=== PATIENT | female | born 1980 | race Asian ===

== ENCOUNTER 2016-11-12 11:01 | Observation (INO) | payer OTHER ==
[2016-11-12] VITALS (15 sets, daily range): BP systolic 82–104; BP diastolic 40–58; PULSE 66–84; RESP 17–18; Ht 162.6 cm; Wt 54.6 kg
[~2016-11-12] VITALS: Ht 162.6 cm; Wt 54.6 kg
[2016-11-12] MEDS ORDERED: [UNRECOGNIZED DRUG - CODE] PO (11:59)
[2016-11-12] MEDS ORDERED: LACTATED RINGER'S 1,000 ML IV SCH (12:00)
[2016-11-12 12:03] LABS: ADD SCAN DIFF NO
[2016-11-12 12:08] LABS: BASOPHILS % 0.3 % (0.0-2.0); EOSINOPHILS # 0.1 10^3/ul (0.0-0.5); EOSINOPHILS % 1.7 % (0.0-7.0); HEMATOCRIT 31.9 % (37.0-47.0); LYMPHOCYTES # 1.7 10^3/ul (0.8-2.9); LYMPHOCYTES % 25.6 % (15.0-51.0); MEAN CORPUSCULAR HEMOGLOBIN 31.3 pg (29.0-33.0); MEAN CORPUSCULAR HGB CONC 34.5 g/dl (32.0-37.0); MEAN CORPUSCULAR VOLUME 90.6 fl (82.0-101.0); MEAN PLATELET VOLUME 10.4 fl (7.4-10.4); MONOCYTE # 0.5 10^3/ul (0.3-0.9); MONOCYTES % 7.2 % (0.0-11.0); NEUTROPHIL # 4.2 10^3/ul (1.6-7.5); NEUTROPHILS % 64.4 % (39.0-77.0); PLATELET COUNT 206 10^3/UL (140-415); RED BLOOD COUNT 3.52 10^6/ul (4.20-5.40); RED CELL DISTRIBUTION WIDTH 12.1 % (11.5-14.5); WHITE BLOOD COUNT 6.6 10^3/ul (4.8-10.8)
[2016-11-12 12:25] LABS: INR 0.91; PROTIME 12.2 Sec (12.2-14.2)
[2016-11-12 12:26] LABS: PARTIAL THROMBOPLASTIN TIME 27.5 Sec (25.0-35.0)
--- NOTE | 2016-11-12 12:46 | PREOPHP ---
DATE OF ADMISSION: 11/12/2016 CHIEF COMPLAINT: Intrauterine at 18 weeks 2 days and left 8 cm ovarian dermoid tumor. HISTORY OF PRESENT ILLNESS: Patient is a 35-year-old 1 with last menstrual period 07/07/2016. Estimated confinement 04/13/2017 with an intrauterine at 18 weeks 2 days. At her first visit at 9 weeks , she had a very large palpable left adnexal mass which through evaluation including an MRI, it was revealed to be a dermoid tumor. Standard is to wait until sometime between 14 and 20 weeks to proceed to surgery to get her past the time of more common miscarriages. After much discussion in with Jesús Torre MD the CURRICULUM DIRECTOR oncologist as well as the patient's perinatologist, Dr. Gabriel Hallman decided to proceed to removing it now as Dr. Hallman is particularly worried about as the uterus grows having the ovary get tugged on and having it become a torsion or rupturing and causing way more problems than removing the tumor under controlled conditions at this point in time. I have asked Dr. Jesús Torre to assist as this is surgery in the upper abdomen by laparoscopy, in order to proceed with the most caution. PAST MEDICAL HISTORY: Otherwise, past medical history is negative. PAST SURGICAL HISTORY: Only her wisdom teeth previously and she had used local anesthesia only. ALLERGIES: NO KNOWN DRUG ALLERGIES. FAMILY HISTORY: Noncontributory. MEDICATIONS: Takes vitamins only. PHYSICAL EXAMINATION: VITAL SIGNS: She is 5 feet 4 inches, 120 pounds. HEART: Regular rate and rhythm. LUNGS: Clear to auscultation. ABDOMEN: Soft, nontender, gravid. I am unable to palpate the mass now as the uterus has grown. PELVIC: Deferred. EXTREMITIES: Nontender, no edema. LABORATORY WORK: Blood type A positive, antibody screen negative, serology nonreactive, rubella immune, hepatitis B surface antigen negative, hepatitis C antibody negative, HIV negative. Pap was negative. Gonorrhea was negative. The patient had chlamydia which was treated and she had a test of care which was negative. First and second trimester screens were negative. TSH normal. Platelets were normal. One hour post-Glucola was normal. Hemoglobin 12.1 initially.Tumor markers were within normal range. ASSESSMENT: Intrauterine at 18 weeks 2 days, left 8 cm ovarian dermoid tumor. PLAN: Laparoscopic left ovarian cystectomy, possible laparotomy, possible oophorectomy. Dictated By: ENEIDA RUSSELL/ALYCE Conf#: [id number] DID#: [id number] MTDD
[2016-11-12] MEDS ORDERED: morphine SULFATE/PF (10 MG/10 ML) INJ ONE (13:30)
[2016-11-12] MEDS ORDERED: PROPOFOL 20 ML ONE (13:30)
[2016-11-12] MEDS ORDERED: METOCLOPRAMIDE 10 MG INJ ONE (13:31)
[2016-11-12] MEDS ORDERED: FENTAnyl 50 MCG/ML VIAL ONE (13:52)
[2016-11-12] MEDS ORDERED: EPHEDrine SULFATE 50 MG/5 ML SYG ONE (14:02)
[2016-11-12] MEDS ORDERED: ROCURONIUM 50 MG INJ ONE (14:17)
[2016-11-12] MEDS ORDERED: METOCLOPRAMIDE 10 MG INJ IV PRN (15:00)
[2016-11-12] MEDS ORDERED: HYDROmorphONE (0.2 MG/ML) 10ML SYG IV PRN ×3 (15:00)
[2016-11-12] MEDS ORDERED: MEPERIDINE 25 MG INJ IV PRN (15:00)
[2016-11-12] MEDS ORDERED: HYDROmorphONE 1 MG/ML SYG IV PRN ×3 (15:00)
[2016-11-12] MEDS ORDERED: NALOXONE (0.4 MG/ML) INJ IV PRN (15:00)
[2016-11-12] MEDS ORDERED: DIPHENHYDRAMINE 50 MG INJ IV PRN ×2 (15:00)
[2016-11-12] MEDS ORDERED: GLYCOPYRROLATE 0.4 MG INJ ONE (16:03)
[2016-11-12] MEDS ORDERED: NEOSTIGMINE 3 MG/3 ML SYRINGE ONE (16:03)
[2016-11-12] MEDS: DEXTROSE 5%-LR 1,000 ML IV SCH (20:35)
--- NOTE | 2016-11-12 22:05 | OPR ---
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 Lasha Jeffries) 3- Minilaparotomy (dictated as a separate procedure by Dr. Lasha Jeffries ) Surgeon: Dr. Morales Human Resources Office Manager: Dr. Lasha Jeffries Anesthesia: General Indications for Surgery The patient is a 36- year old patient with an 18- week IUP, some discomfort and normal tumor markers excluding germ cell and epithelial malignancy. Hence the procedure was addressed to avoid a possible torsion and premature labor with a laparoscopy with all options considered and Dr. Lasha Jeffries was the primary surgeon and I was the fitness sales consultant in the event that a ureteral dissection or other consultation or staging were needed. Name: Bella Moore Medical Findings and Summary After exploration it was noted that the patient had a uterus somewhat larger than anticipated with fibroids and the viable left adnexia was adherent to the left sidewall with distortion of the retroperitoneal anatomy by the enlarged uterus and mass with distorted IP-ligament. Because the adnexia was adherent to the sidewall IP- hypervascular, it was necessary to dissect and reposition the ureter. The adnexia was then removed without incident in a 15-millimeter sac without spillage through a small minilaparotomy Procedure: After being prepped and draped in the usual manner a 5 millimeter trocar was placed significantly cephlad to the umbilicus due to the size of the uterus and adnexal mass without incident. Subsequently, the abdomen was insufflated to 15 mm Hg and the patient had placement of two 5 millimeter trocars laterally and cephlad to the umbilical level, and a 12 millimeter trocar 3 finger breadths suprapubically. At this time, the pelvis/abdomen were thoroughly inspected and we observed an enlarged uterus consistent with the with fibroids further enlarging the uterus and a left adnexal mass adherent to the sidewall with the IP-ligament hypervascular and distortion of the retroperitoneal anatomy due to uterine enlargement and the adnexal mass adherent to the sidewall, with distortion of the ureteral anatomy. It was requested by Dr. Lasha Jeffries that I perform a ureteral dissection with repositioning, as a separate procedure, so that the needed procedure (laparoscopic LSO) could be completed without complication. Hence the ureteral dissection with repositioning was undertaken. A protected fan retractor was placed through the 12-mm trocar to apply minimal medial retraction to the uterus and the peritoneum near the round ligament was opened with a Gyrus bipolar cutting forceps and Omni and the retroperitoneum opened parallel to the infundibulo- pelvic (IP) ligament with the same devise using Name: [facility] cautery and sharp dissection as well as the Omni. The IP-ligament was retracted medially with the IP-ligament and the ureter was identified, and noted to be adherent to the pelvic peritoneum near adjacent adnexia The ureter was dissected away from the peritoneum with adjacent adnexia and repositioned with great care using the endo-dissector and the Omni bluntly, permitting a space to be developed in the broad ligament. Additional enterolysis was accomplished with sharp dissection and the Omni and the sigmoid colon retracted The laparoscopic procedure as planned was then completed by Dr. Lasha Jeffries uneventfully. After irrigating and assuring hemostasis, the skin of the minilaparotomy was closed with a deep layer of interrupted 2-0 Vicryl suture and of all sites then closed with subcuticular 3-0 Monocryl suture. The EBL was approximately 50-75 cc and the patient tolerated the procedure well and left the OR in good condition. Jesús Morales M.D. JESÚS MORALES MD November 12, 2016 22:04
[2016-11-13] MEDS: DEXTROSE 5%-LR 1,000 ML IV SCH (02:56)
--- NOTE | 2016-11-13 10:16 | PD.PPDC ---
ENGINEERING AIDE Discharge Instruction Condition Patient Condition: Good Diet Diet: Resume Regular Diet Activity/Restrictions Activity: Bedrest May be up to bathroom May be up for meals May Shower Restrictions: No Exercising No Lifting No Driving Minimize Walking Minimize Stair-climbing No Sexual Activity Nothing in the Vagina No [place] No Tampons, douche Follow-up Follow-up with Physician: 2, Week/Weeks Return to clinic for ORTHOTICS ASSISTANT Instructions: Fever greater than 101 Chills Worsening abdominal pain Excessive Vaginal Bleeding Surgical Instructions: Incisional Drainage Incisional Redness ENEIDA MARTÍNEZ MD November 13, 2016 10:16
[2016-11-13] MEDS ORDERED: OXYCODONE/ACETAMINOPHEN (5/325) TAB PO PRN (10:30)
--- NOTE | 2016-11-13 12:10 | PN ---
Date/Time of Note Date/Time of Note DATE: 11/13/16 TIME: 12:07 Assessment/Plan VTE Prophylaxis VTE Prophylaxis Intervention: ambulation Lines/Catheters IV Catheter Type (from Nrsg): Peripheral IV Subjective 24 Hr Interval Summary Free Text/Dictation Anesthesia note: A 31 year old female 18 w s/p laparoscopic left salpingo-oopherectomy pod # 1 undr Ga and Spninal is doing well, no pain, n/v, itching, back pain. no irritation or inflamation at back. Exam/Review of Systems Vital Signs Vitals Vital Signs Date Time Temp Pulse Resp B/P Pulse Ox O2 Delivery O2 Flow Rate FiO2 11/12/16 20:08 97.5 66 18 83/42 100 Room Air 11/12/16 16:43 6.0 Intake and Output 11/12/16 11/12/16 11/13/16 14:59 22:59 06:59 Intake Total 2100 ml 1000 ml Output Total 430 ml Balance 1670 ml 1000 ml Results Result Diagram: 11/12/16 1155 ROSARIO DOBSON MD November 13, 2016 12:10
--- NOTE | 2016-11-13 20:34 | DS ---
Date/Time of Note Date/Time of Note DATE: 11/13/16 TIME: 20:28 Discharge Summary Admission/Discharge Info Admit Date/Time November 12, 2016 at 18:20 Discharge Date/Time November 13, 2016 at 11:32 Final Diagnosis IUP at 18 weeks, 10cm left ovarian dermoid tumor. Patient Condition: Good Procedures Laparoscopic left salpingoophorectomy. Hospital Course Pt rested comfortably overnight with Duramorph and additional pain meds as needed. hearts have been within normal range and pt does not report any pressure or bleeding. Home Meds Reported Medications Prenatl Vit6/Iron/FA/B12/Ca/D3 (Mteryti Folic 5 Combo Pack) 1 Each Tablet.seq, 1 EACH PO, TAB 11/12/16 Follow-up Plan Pt to return to the office in 2 weeks for follow-up and was given labor precautions. ENEIDA MARTÍNEZ MD November 13, 2016 20:34
--- NOTE | 2016-11-15 05:08 | OPR ---
DATE OF OPERATION: 11/12/2016 PREOPERATIVE DIAGNOSES: 1. Left adnexal mass with intermittent discomfort. 2. An 18 week intrauterine . POSTOPERATIVE DIAGNOSES: 1. Left adnexal mass, probably a benign teratoma, pathology pending. 2. Pelvic adhesions and fibroids. 3. An 18 weeks . OPERATION PERFORMED: Laparoscopic left salpingo-oophorectomy, minilaparotomies , and left ureterolysis with repositioning. SURGEON: Lasha Jeffries MD HAND CANDY DIPPER: Jesús Torre MD ANESTHESIA: General with a spinal block as well. PROCEDURE TECHNIQUE: The patient is a 36-year-old primigravida with an 18-week , some discomfort, normal tumor markers, and proceeding with removal of the ovary to avoid possible torsion and possible rupture of the mass as the uterus continued to grow after consultation with perinatology and the patient. The initial portion of the surgery is dictated previously by Dr. Torre. Upon entering the abdomen I asked him to proceed with a ureteral dissection with repositioning due to the uterus being a little larger than expected and some adhesions between the mass and sidewall and the bowel and sidewall. Once the ureteral dissection had occurred, anatomy was well defined. The Thunderbeat was used to capture the tube at the base where it enters the uterus. This was cauterized and cut down capturing the tube and then at the pedicle to the ovary. This was easily accomplished with excellent hemostasis at all times. When the tube and ovary were free, at the mini laparotomy site, a large bag was placed carefully having to feed it at an extreme angle, tracking above the uterus without touching it, and placed into the left adnexa and the ovary was teased into the bag. As the mass was rather large,it needed decompression but wanted to proceed with caution and not spill any fluid. Incised the mass with suction and evacuated the liquid contents which were consistent with fat. When the ovary got down to about one-third of its former size, the needle was removed. The sac was closed and brought up over the uterus to the minilaparotomy site. The bag was brought out of the site up to the level of the mass, then reached into the sac and pulled the mass out in parts, effectively removing it all. It did appear most consistent with a dermoid tumor. To get the mass out in the sac, the minilaparotomy site had to be stretched some, so I had to close this area in order to proceed with the rest of the surgery. I used 0 Vicryl suture in a running stitch to close the fascia with excellent tissue approximation and hemostasis, and the subcutaneous area was irrigated, cautery applied where needed for hemostasis, and 2-0 chromic was placed to bring the subcutaneous layer together. Then the skin was closed with 3-0 Monocryl in subcutaneous fashion. I proceeded to irrigate the abdomen gently. No instruments inside, no laps inside. Gently irrigated. All surgical sites were very dry. Then I released the air and removed the instruments. Proceeded to close the remaining incision sites all with 3-0 Monocryl as they were all for 5 mm trocars. Surgical glue was placed over all of the incisions at the end. When completed, the patient's legs were brought together and then down into the full supine position, and she was awakened from general anesthesia having tolerated the procedure well and left the OR in good condition. Dictated By: LASHA RUSSELL/ALYCE Conf#: [id number] DID#: [id number] MTDSosa
== END 2016-11-13 11:32 | disposition home or self-care (01) ==
LOC: SDS 11:01 → EDSTATUS 13:30 → INTOOBSV 18:20 → OBG 18:20 → SDS 18:20
PROVIDERS: ADMIT Obstetrics & Gynecology; ATTEND Obstetrics & Gynecology
DX: O34.12 Maternal care for benign tumor of corpus uteri, second trimester (principal); D27.1 Benign neoplasm of left ovary; N73.6 Female pelvic peritoneal adhesions (postinfective); Z3A.18 18 weeks gestation of pregnancy
CPT/HCPCS: 50715; 58661; 85025; 85610; 85730; G0378; J2274; J2765; J3010; J7121; J2710; J7120

== ENCOUNTER 2017-02-15 13:26 | Inpatient (IN) | payer OTHER ==
[~2017-02-15] VITALS: Ht 162.6 cm; Wt 60.3 kg
[~2017-02-15 13:26] MED LIST: [UNRECOGNIZED DRUG - CODE] PO
[2017-02-15 13:45] VITALS: BP 124/54; RESP 16; Ht 162.6 cm; Wt 60.3 kg
[2017-02-15] MEDS ORDERED: LACTATED RINGER'S 1,000 ML IV PRN (14:30)
[2017-02-15] MEDS ORDERED: TERBUTALINE 1 MG/ML INJ SC ONE (14:30)
[2017-02-15 15:01] LABS: ADD UMIC YES; UR ASCORBIC ACID 40 mg/dL (NEGATIVE); UR BACTERIA FEW /HPF (NONE SEEN); UR BILIRUBIN (Dip) NEGATIVE (NEGATIVE); UR BLOOD (Dip) NEGATIVE (NEGATIVE); UR CLARITY SLIGHTLY CLOUDY (CLEAR); UR COLOR YELLOW (YELLOW); UR GLUCOSE (Dip) 1+ mg/dL (NEGATIVE); UR KETONES (Dip) 1+ mg/dL (NEGATIVE); UR LEUKOCYTE ESTERASE (Dip) 1+ Leu/ul (NEGATIVE); UR MUCUS FEW /HPF (NONE SEEN); UR NITRITE (Dip) NEGATIVE (NEGATIVE); UR RBC 3 /HPF (0-5); UR SPECIFIC GRAVITY (Dip) 1.023 (1.003-1.030); UR SQUAMOUS EPITHELIAL CELL FEW /HPF (FEW); UR TOTAL PROTEIN (Dip) 2+ mg/dl (NEGATIVE); UR UROBILINOGEN (Dip) NEGATIVE (NEGATIVE)
[2017-02-15] MEDS ORDERED: MAGNESIUM SULFATE 4 GM/100 ML 100 ML IV ONE (17:00)
[2017-02-15] MEDS: BETAMET NA PHOS/AC(6 MG/ML) 5ML INJ IM SCH (17:28)
[2017-02-15] MEDS: LACTATED RINGER'S 1,000 ML IV SCH (17:28)
[2017-02-15] MEDS: MAGNESIUM SULFATE 20 GM/500 ML 500 ML IV SCH (17:55)
[2017-02-15] MEDS ORDERED: ONDANSETRON 4 MG INJ IV PRN (19:30)
--- NOTE | 2017-02-15 21:14 | HP ---
Date/Time of Note Date/Time of Note DATE: 02/15/17 TIME: 21:06 OB - History Hx of Present Free Text/Dictation 36 y.o. G1 with an IUP at 31 weeks 6 days came in c/o with pressure under the diaphragm and nausea and was found to be [place] every few minutes.No leaking and no bleeding. Last Menstrual Period: Jul 07, 2016 Estimated Due Date: Apr 13, 2017 : 1 Para: 0 Care: Good Care Ultrasounds: Normal mid trimester US Obstetrical Complications: None Medical Complications: None Other Concerns: Pt with recent dx of PUPPS. Pt had a very large dermoid cyst that was removed by BSO at 18 weeks of . Pt had chlamydia that was treated in early . PMHx: none. PSHx: wisdom teeth. LSC left salpingoophorectomy for a dermoid cyst. NKDA. Past Family/Social History * Past Medical, Surgical, Family and Obstetric Histories reviewed from chart. Blood Type: A+ Rubella: immune RPR/VDRL: Negative GBS Status: Unknown HBsAG: Negative OB Admission Exam Vital Signs Vital Signs Vital Signs Date Time Temp Pulse Resp B/P Pulse Ox O2 Delivery O2 Flow Rate FiO2 02/15/17 13:45 97.8 16 124/54 Room Air Physical Exam HEENT: WNL Heart: Rhythm Normal Lungs: Clear Abdomen: WNL Extremities: Normal Reflexes: Normal Cervical Dilatation: Fingertip Effacement: 50% Station: -2 Membranes: Intact Heart Rate: 140's Accelerations: Accelerations Present Decelerations: No Decelerations Varibility: Moderate Contractions on Admission: < 5 Minutes Apart Intensity: Mild OB Assessment/Plan Reason for admission: labor Other Assessment: IUP at 31 weeks 6 days. Plan: Other (Tocolysis.) Other plan: Steroid administration. Pt failed hydration and 2 doses of terbutaline with no slowing of the contractions so was admitted and started on magnesium sulfate for tocolysis. Ancef 2 grams q 8 hours while awaiting the urine cx. ENEIDA MARTÍNEZ MD Feb 15, 2017 21:14
[2017-02-15] MEDS: CEFAZOLIN 2 GM/50 ML (PMX) 50 ML IVPB SCH (22:27)
[2017-02-16] MEDS ORDERED: NIFEdipine 10 MG CAP PO ONE (00:30)
[2017-02-16] MEDS ORDERED: MAGNESIUM SULFATE 4 GM/100 ML 100 ML IV ONE (00:30)
[2017-02-16] MEDS: LACTATED RINGER'S 1,000 ML IV SCH ×3 (02:46→16:50)
[2017-02-16] MEDS: MAGNESIUM SULFATE 20 GM/500 ML 500 ML IV SCH ×3 (04:15→22:53)
[2017-02-16] MEDS: CEFAZOLIN 2 GM/50 ML (PMX) 50 ML IVPB SCH ×3 (06:15→21:59)
[2017-02-16] MEDS: BETAMET NA PHOS/AC(6 MG/ML) 5ML INJ IM SCH (17:01)
[2017-02-17] MEDS: LACTATED RINGER'S 1,000 ML IV SCH ×3 (03:12→16:50)
[2017-02-17] MEDS: CEFAZOLIN 2 GM/50 ML (PMX) 50 ML IVPB SCH ×3 (06:04→22:06)
[2017-02-17] MEDS: MAGNESIUM SULFATE 20 GM/500 ML 500 ML IV SCH ×3 (08:58→18:46)
--- NOTE | 2017-02-17 20:32 | QN ---
Documentation Comment HD #3 Pt is feeling much better. Is only having about 1 contraction/hour and isn't feeling them. The Magnesium was turned down earlier today and the pt has remained steady. S/P 2 doses of steroids. Afebrile. VSS NST: rare UC's Tracing is reactive with good accelerations and no decels. A: IUP at 32+ weeks. PTL. P: D/C magnesium and change pt over to Procardia 20mg q 6. If pt holds steady she may be able to be d/c'ed home tomorrow to bedrest. ENEIDA MARTÍNEZ MD Feb 17, 2017 20:32
--- NOTE | 2017-02-17 20:35 | QN ---
Documentation Comment Late entry for 02/16/17 HD#2. Came to see pt and she is in good spirits. Contractions had been 5-6/hour earlier in the day but are now 1-2/hour. No bleeding. NST: reactive with good accels and no decels. A: IUP at 32 weeks. PTL. P: will decrease the magnesium in the morning and switch pt over to Procardia as a prelude to going home. ENEIDA MARTÍNEZ MD Feb 17, 2017 20:35
[2017-02-17] MEDS: NIFEdipine 10 MG CAP PO SCH (21:16)
[2017-02-18] MEDS: NIFEdipine 10 MG CAP PO SCH ×2 (01:14→05:57)
[2017-02-18] MEDS: LACTATED RINGER'S 1,000 ML IV SCH ×3 (01:16→23:22)
[2017-02-18] MEDS: CEFAZOLIN 2 GM/50 ML (PMX) 50 ML IVPB SCH ×3 (05:56→21:53)
[2017-02-18] MEDS ORDERED: MAGNESIUM SULFATE 4 GM/100 ML 100 ML ONE (08:41)
[2017-02-18] MEDS ORDERED: MAGNESIUM SULFATE 4 GM/100 ML 100 ML IVPB ONE (09:00)
[2017-02-18] MEDS: MAGNESIUM SULFATE 20 GM/500 ML 500 ML IV SCH ×2 (09:09→18:21)
[2017-02-18 11:47] LABS: BASOPHILS % 0.2 % (0.0-2.0); EOSINOPHILS # 0.1 10^3/ul (0.0-0.5); EOSINOPHILS % 0.6 % (0.0-7.0); HEMOGLOBIN 10.4 g/dl (12.0-16.0); LYMPHOCYTES # 1.1 10^3/ul (0.8-2.9); LYMPHOCYTES % 10.2 % (15.0-51.0); MEAN CORPUSCULAR HEMOGLOBIN 30.8 pg (29.0-33.0); MEAN CORPUSCULAR HGB CONC 33.5 g/dl (32.0-37.0); MEAN CORPUSCULAR VOLUME 91.7 fl (82.0-101.0); MEAN PLATELET VOLUME 11.2 fl (7.4-10.4); MONOCYTE # 0.8 10^3/ul (0.3-0.9); MONOCYTES % 7.6 % (0.0-11.0); NEUTROPHIL # 8.7 10^3/ul (1.6-7.5); PLATELET COUNT 194 10^3/UL (140-415); RED BLOOD COUNT 3.38 10^6/ul (4.20-5.40); RED CELL DISTRIBUTION WIDTH 13.1 % (11.5-14.5); WHITE BLOOD COUNT 10.7 10^3/ul (4.8-10.8)
[2017-02-18 12:05] LABS: POTASSIUM 3.2 mmol/L (3.5-5.1)
[2017-02-18 12:06] LABS: ALBUMIN 3.1 g/dl (3.3-4.9); ALBUMIN/GLOBULIN RATIO 0.96; BILIRUBIN,INDIRECT 0.4 mg/dl (0-1.1); BILIRUBIN,TOTAL 0.4 mg/dl (0.2-1.3); CALCIUM 7.8 mg/dl (8.4-10.2); CREATININE 0.63 mg/dl (0.44-1.00); TOTAL PROTEIN 6.3 g/dl (6.1-8.1)
[2017-02-18] MEDS ORDERED: POTASSIUM BICARBONATE 25 MEQ TAB PO ONE (18:00)
[2017-02-19] MEDS: MAGNESIUM SULFATE 20 GM/500 ML 500 ML IV SCH ×2 (04:28→18:43)
[2017-02-19] MEDS: CEFAZOLIN 2 GM/50 ML (PMX) 50 ML IVPB SCH ×3 (06:10→22:12)
[2017-02-19] MEDS: ACETAMINOPHEN 325 MG TAB PO PRN ×3 (08:52→22:13)
--- NOTE | 2017-02-19 08:53 | QN ---
Documentation Comment Late Entry Progress Note (was unable to access from home) HD #3 (for 02/18/17 Pt had been taken off magnesium and changed to Procardia and had been doing fine but started austin again q 4-5 minutes about 0600 so the magnesium was restarted and worked fairly quickly. VSS NST baseline 130-140 bpm with accels to 170 bpm. No decels. WBC 10.7 Hgb 10.4 K+ was 3.2 A: IUP at 32 weeks 2 days. PTL. P: Continue on the magnesium for now. Will decrease to 1.5 overnight and se if the pt tolerates. As pt is after 32 weeks Indocin is not a choice.When pt was admitted the terbutaline given did not make a difference at all. Will ask for a perinatology consult in the AM. Cervical length in the AM. KCL 25 p.o. x 1. ENEIDA MARTÍNEZ MD Feb 19, 2017 08:53
--- NOTE | 2017-02-19 13:48 | RADRPT ---
PROCEDURE: Limited OB ultrasound. CLINICAL INDICATION: labor. TECHNIQUE: Real time scans were obtained through the gravid uterus. Images were reviewed on [id number] PACS workstation. COMPARISON: None available. FINDINGS: There is a single living intrauterine gestation in cephalic position. There is a posterior placenta without evidence of previa or abruption. There is active cardiac motion at 154 beats per minute. Cervical length is 3.0 cm. IMPRESSION: 1. Single living intrauterine gestation in cephalic position with a cervical length of 3.0 cm. RPTAT: AACC Physician Amber Date Time Electronically viewed and signed by Physician Amber on 02/19/2017 13:47 /
[2017-02-19] MEDS: LACTATED RINGER'S 1,000 ML IV SCH (13:53)
--- NOTE | 2017-02-19 14:14 | PERINOTE ---
Date/Time of Note Date/Time of Note DATE: 02/19/17 TIME: 14:04 Assessment/Recommendations Other Assessments 32 week IUP contractions, recurring when magnesium was discontinued Normal cervical length Recommendations: Under these circumstances I would discontinue the magnesium and observe. If contractions occur (more than one every 10 minutes for two hours), would repeat the cervical length. If the cervical length is shortening, could consider repeat magnesium tocolysis, although I would not continue trials of tocolysis after 34 weeks GA. This consultation relies on history from the medical record and from discussion with Dr. Jeffries. OB Subjective Free Text/Dictaton Was asked by Dr. Jeffries to comment on this patient's management. Patient was admitted with contractions. These have responded well to magnesium sulfate, but recurred when the patient was changed to nifedipine and magnesium was restarted. Cervical length today was 3 cm (in the normal range, suggesting a lower risk for delivery). The cervical length images were reviewed by me, and appear to be valid. Patient is currently about 32 weeks GA. Current Medications Current Medications Lactated Ringer's 1,000 ml @ 75 mls/hr [id number] IV Last administered on 13:53; Admin Dose 75 MLS/HR; Start 02/15/17 at 16:50 Cefazolin Sodium/ Dextrose (Ancef 2 Gm/50 ml (Pmx)) 50 ml @ 100 mls/hr Q8 IVPB Last administered on 02/19/17 13:53; Admin Dose 100 MLS/HR; Start 02/15/17 at 22:00 Ondansetron HCl 4 mg 4 mg Q6H PRN IV NAUSEA AND/OR VOMITING Last administered on 02/16/17 15:15; Admin Dose 4 MG; Start 02/15/17 at 19:30 Magnesium Sulfate (Magnesium Sulfate 20 Gm/500 ml) 500 ml @ 25 mls/hr Q20H IV Last administered on 02/19/17 04:28; Admin Dose 50 MLS/HR; Start 02/18/17 at 09 :00 Acetaminophen (Tylenol Tab) 650 mg Q6H PRN PO PAIN AND OR ELEVATED TEMP Last administered on 02/19/17 08:52; Admin Dose 650 MG; Start 02/19/17 at 09:00 Copies To: CC: REICHENEIDA Trotter MD, MARIE H MD Feb 19, 2017 14:14
--- NOTE | 2017-02-19 15:01 | QN ---
Documentation Comment Progress Note HD #4 IUP at 32 weeks 3 days; PTL Pt has occasional UC's on current magnesium level of 1mg/hr. Pt feels better on the lower amount. Spoke to Dr Peñaloza today and she recommended weaning off the magnesium and the seeing if when she has cervical change if she starts to contract again. CX length today 3.06 cm. NST reactive with good accels. ENEIDA MARTÍNEZ MD Feb 19, 2017 15:01
[2017-02-20] MEDS: LACTATED RINGER'S 1,000 ML IV SCH ×2 (03:30→16:41)
[2017-02-20] MEDS: CEFAZOLIN 2 GM/50 ML (PMX) 50 ML IVPB SCH ×3 (06:12→21:34)
[2017-02-20] MEDS: ACETAMINOPHEN 325 MG TAB PO PRN ×2 (09:36→16:38)
[2017-02-20] MEDS: TERBUTALINE 2.5 MG TAB PO PRN (09:36)
--- NOTE | 2017-02-20 10:45 | QN ---
Documentation Comment Pregress Note. Pt is doing well off the magnesium. Started to have contractions q 10 minutes this AN but wasn't feeling them. Pt was given terbutaline 2.5 mg p.o. x 1 and they have spaced out. Will be off the magnesium 12 hours at 1100 which is when she started to contract last time. Will observe for today. Hopefully will have d/s tomorrow. ENEIDA MARTÍNEZ MD Feb 20, 2017 10:45
[2017-02-21] MEDS: TERBUTALINE 2.5 MG TAB PO PRN (02:57)
[2017-02-21] MEDS: CEFAZOLIN 2 GM/50 ML (PMX) 50 ML IVPB SCH (05:55)
[2017-02-21] MEDS: LACTATED RINGER'S 1,000 ML IV SCH (08:34)
--- NOTE | 2017-02-21 09:43 | PD.PPDC ---
LOGGING ENGINEER Discharge Instruction Condition Patient Condition: Good Diet Diet: Resume Regular Diet Activity/Restrictions Activity: Bedrest May be up to bathroom May be up for meals May Shower Restrictions: No Exercising No Lifting Minimize Walking No Sexual Activity Nothing in the Vagina No [place] No Tampons, douche Follow-up Follow-up with Physician: 1, Week/Weeks Return to clinic for DIRECTOR HOME Instructions: Worsening abdominal pain Excessive Vaginal Bleeding ENEIDA MARTÍNEZ MD Feb 21, 2017 09:43
[2017-02-21] MEDS ORDERED: TER25 PO (09:44)
--- NOTE | 2017-02-21 09:46 | DS ---
Date/Time of Note Date/Time of Note DATE: 02/21/17 TIME: 09:44 Obstetrical Discharge Record Final Diagnosis Final Diagnosis: not delivered Other Final Diagnosis labor. Complications Labor Augmentation: No Induction: No Tocolytics: Magnesium Sulfate, Terbutaline, Other (Procardia) Rupture of Membranes: No Condition on Discharge Physical Assessment Last Vitals: VSS, normotensive. Voiding: Yes Bowel Movement: Yes Breast: Soft, non-tender Fundus: Other (Gravid, soft.) Calf Tenderness: No Patient Condition: Good ENEIDA MARTÍNEZ MD Feb 21, 2017 09:46
[2017-02-21] MEDS ORDERED: DIPHTH/TET/ACEL PERTUSS (ADULT) 0.5 ML VIAL IM* ONE (10:00)
== END 2017-02-21 11:00 | disposition home or self-care (01) | DRG 778 ==
LOC: OBT 13:26 → L-D 13:40 → OBT 16:49 → OBG 16:49
PROVIDERS: ADMIT Obstetrics & Gynecology; ATTEND Obstetrics & Gynecology
PROC: 4A1HX4Z Monitoring of Products of Conception, Cardiac Electrical Activity, External Approach (ICD-10-PCS; principal; 2017-02-15)
PROC: 3E0337Z Introduction of Electrolytic and Water Balance Substance into Peripheral Vein, Percutaneous Approach (ICD-10-PCS; 2017-02-15)
PROC: 3E0234Z Introduction of Serum, Toxoid and Vaccine into Muscle, Percutaneous Approach (ICD-10-PCS; 2017-02-21)
DX: O60.03 Preterm labor without delivery, third trimester (principal); Z23 Encounter for immunization; Z3A.31 31 weeks gestation of pregnancy
CPT/HCPCS: 76817; 80053; 81001; 82731; 83735; 85025; 87086; 90715; 96360; 96361; 96372; G0463; J0690; J0702; J2405; J3105; J3475; J7120

== ENCOUNTER 2017-03-02 22:39 | Outpatient (CLI) | payer OTHER ==
[~2017-03-02] VITALS: Ht 162.6 cm; Wt 58.8 kg
[~2017-03-02 22:39] MED LIST changes: +TER25 PO
[2017-03-02 23:05] VITALS: Ht 162.6 cm; Wt 58.8 kg
[2017-03-02 23:12] VITALS: BP 118/73; PULSE 101; RESP 20
[2017-03-03] MEDS: DEXTROSE 5%-LR 1,000 ML IV SCH ×2 (00:15→04:13)
--- NOTE | 2017-03-03 00:41 | RADRPT ---
PROCEDURE: US OB Limited for Estimated Weight. CLINICAL INDICATION: 36 years of age, female. Contractions TECHNIQUE: Multiple sonographic images of the pelvis were obtained. Transabdominal imaging only w as performed. The images were reviewed on a PACS workstation. Image quality: Satisfactory. COMPARISON: No prior studies are available for comparison. FINDINGS: [place] : Number of fetuses: 1 GENERAL EVALUATION: Cardiac activity: Present. FHR 134 bpm Presentation: Cephalic Placenta: Placenta site: Posterior. No evidence of placental previa. Placental grade 1 Cervix (transabdominal): Not evaluated DATING: Clinical TAZ: April 13, 2017 EGA based on TAZ: 34 weeks 0 days BIOMETRY: BPD = 8.7 cm , 34 weeks 6 days HC = 31.4 cm , 35 weeks 1 day AC = 29.6 cm , 33 weeks 4 days FL = 6.5 cm , 33 weeks 3 days Composite sonographic age: 34 weeks 2 days plus or minus 3 weeks Estimated due date by ultrasound measurements: April 12, 2017 EFW 2287 grams, 38 percentile. ANATOMY: Not evaluated. IMPRESSION: 1. Single living fetus in cephalic presentation. 2. Clinical gestation age of 34 weeks 0 days and clinical TAZ April 13, 2017 are concordant with th e composite sonographic age within 2 days. 3. Estimated weight is 2287 grams that is at the 38 percentile for gestational age. 4. Posterior grade 1 placenta. RPTAT: HCTS Physician Bobby Date Time Electronically viewed and signed by Physician Bobby on 03/03/2017 00:41 CS/
[2017-03-03] MEDS ORDERED: ONDANSETRON 4 MG INJ IV ONE (02:30)
[2017-03-03] MEDS ORDERED: TERBUTALINE 1 MG/ML INJ SC ONE ×2 (02:30)
[2017-03-03] MEDS ORDERED: NIFEdipine 10 MG CAP PO ONE (03:30)
[2017-03-03] MEDS ORDERED: ACETAMINOPHEN 325 MG TAB PO ONE (06:30)
--- NOTE | 2017-05-10 14:14 | QN ---
Documentation Comment Diagnosis for this outpatient visit: contractions. False labor. Please note that this is my private pt, that I gave orders for her care and the discharge orders but did not see her during this stay between 2300 on 03/02 and 0700 on 03/03. ENEIDA MARTÍNEZ MD May 10, 2017 14:14
== END 2017-03-03 06:10 | disposition home or self-care (01) ==
LOC: OBT 22:39 → OBG 22:40 → OBT 03-03 06:10
PROVIDERS: ATTEND Obstetrics & Gynecology
DX: O47.03 False labor before 37 completed weeks of gestation, third trimester (principal); Z3A.34 34 weeks gestation of pregnancy
CPT/HCPCS: 36415; 76815; 81001; 87086; 96360; 96361; 96372; 96375; G0463; J2405; J3105; J7121

== ENCOUNTER 2017-03-30 03:05 | Inpatient (IN) | payer OTHER ==
[~2017-03-30] VITALS: Ht 162.6 cm; Wt 62.2 kg
[2017-03-30 03:36] VITALS: Ht 162.6 cm; Wt 62.2 kg
[2017-03-30 03:38] VITALS: BP 120/73; PULSE 77; RESP 18
[2017-03-30] MEDS ORDERED: OXYTOCIN 30 UNITS/LR 500 ML IV SCH ×3 (04:00→11:30)
[2017-03-30] MEDS ORDERED: CARBOPROST 250 MCG INJ IM PRN (04:00)
[2017-03-30] MEDS ORDERED: LIDOCAINE 1% (MPF) 30 ML INJ INJ PRN (04:00)
[2017-03-30] MEDS ORDERED: METHYLERGONOVINE 0.2 MG INJ IM PRN (04:00)
[2017-03-30] MEDS ORDERED: OXYTOCIN 30 UNITS/LR 500 ML IV PRN (04:00)
[2017-03-30] MEDS ORDERED: MISOPROSTOL 200 MCG TAB PR PRN (04:00)
[2017-03-30] MEDS ORDERED: BUTORPHANOL 2 MG INJ IV PRN (04:00)
[2017-03-30] MEDS ORDERED: LACTATED RINGER'S 1,000 ML IV PRN (04:00)
[2017-03-30] MEDS ORDERED: IBUPROFEN 600 MG TAB PO PRN (04:00)
[2017-03-30] MEDS ORDERED: OXYTOCIN 30 UNITS in LACTATED RINGER'S 497 ML IV SCH (04:30)
[2017-03-30] MEDS: LACTATED RINGER'S 1,000 ML IV SCH ×3 (04:47→21:16)
[2017-03-30 05:49] LABS: BASOPHIL # 0.1 10^3/ul (0.0-0.1); BASOPHILS % 0.6 % (0.0-2.0); EOSINOPHILS # 0.2 10^3/ul (0.0-0.5); HEMOGLOBIN 12.9 g/dl (12.0-16.0); LYMPHOCYTES # 2.6 10^3/ul (0.8-2.9); LYMPHOCYTES % 30.4 % (15.0-51.0); MEAN CORPUSCULAR HEMOGLOBIN 30.3 pg (29.0-33.0); MEAN CORPUSCULAR HGB CONC 33.1 g/dl (32.0-37.0); MEAN CORPUSCULAR VOLUME 91.5 fl (82.0-101.0); MEAN PLATELET VOLUME 12.5 fl (7.4-10.4); MONOCYTE # 0.6 10^3/ul (0.3-0.9); MONOCYTES % 7.5 % (0.0-11.0); NEUTROPHIL # 4.9 10^3/ul (1.6-7.5); NEUTROPHILS % 58.2 % (39.0-77.0); PLATELET COUNT 178 10^3/UL (140-415); RED BLOOD COUNT 4.26 10^6/ul (4.20-5.40); RED CELL DISTRIBUTION WIDTH 14.5 % (11.5-14.5); WHITE BLOOD COUNT 8.4 10^3/ul (4.8-10.8)
[2017-03-30] MEDS ORDERED: MINERAL OIL LIGHT 10 ML VIAL TOP PRN ×2 (06:00→21:00)
[2017-03-30 06:13] LABS: INR 0.83; PROTIME 11.4 Sec (12.2-14.2); PT RATIO 0.9
[2017-03-30 06:14] LABS: PARTIAL THROMBOPLASTIN TIME 28.4 Sec (25.0-35.0)
[2017-03-30] MEDS ORDERED: LACTATED RINGER'S 1,000 ML IV ONE (10:24)
[2017-03-30] MEDS ORDERED: TRIMETHOBENZAMIDE 100 MG/ML VIAL IM PRN (10:30)
[2017-03-30] MEDS ORDERED: ONDANSETRON 4 MG INJ IV PRN (10:30)
[2017-03-30] MEDS ORDERED: KETOROLAC 30 MG INJ IV PRN (10:30)
[2017-03-30] MEDS ORDERED: ONDANSETRON 4 MG INJ IV ONE (10:30)
[2017-03-30] MEDS ORDERED: DIPHENHYDRAMINE 50 MG INJ IV PRN (10:30)
[2017-03-30] MEDS ORDERED: CITRIC ACID/NA CITRATE 30 ML CUP PO ONE (10:30)
[2017-03-30] MEDS ORDERED: NALBUPHINE HCL (10 MG/1 ML) INJ IV PRN (10:30)
[2017-03-30] MEDS ORDERED: NALOXONE (0.4 MG/ML) INJ IV PRN (10:30)
[2017-03-30] MEDS ORDERED: morphine 4 MG/ML VIAL IV PRN (10:30)
[2017-03-30] MEDS ORDERED: morphine 2 MG INJ IV PRN (10:30)
[2017-03-30] MEDS: FENTAnyl 2MCG/ML-ROPIV 0.2% 100 ML BAG EPI SCH ×2 (11:14→17:00)
[2017-03-30] MEDS ORDERED: LACTATED RINGER'S 1,000 ML IV* SCH (23:44)
--- NOTE | 2017-03-30 23:50 | LDN ---
Date/Time of Note Date/Time of Note DATE: 03/30/17 TIME: 23:47 Delivery Summary of a viable baby boy weighing 2880 grams, or 6# 6 oz, 18.5" long, and with Apgars of 9/9. Weeks of Gestation 38w Placenta Delivered: Spontaneously Meconium: none Episiotomy: No Perineal laceration: 2 Laceration repair: First degree vaginal laceration and a second degree perineal laceration repaired with 2-0 chromic with excellent hemostasis and tissue approximation. Anesthesia type: Epidural Estimated blood loss: 400 Sponge & Needle done & correct: Yes All needle counts correct: Yes Any foreign bodies felt in the: No (vagina) Problems: Infant Delivery Information Sex Sex: male Apgars 1 Minute: 9 5 Minute: 9 Suctioning Nose & mouth suctioned at gilmer: Yes Delee suction performed: No Umbilical Cord Umbilical cord with: 3 Vessels Cord presentations: nuchal cord Nuchal cord present X: 1 Cord Blood was obtained: Yes Mother & Baby Disposition Disposition Mom & Baby to Maternity; Good: Yes Baby to NICU: No ENEIDA MARTÍNEZ MD Mar 30, 2017 23:50
--- NOTE | 2017-03-30 23:57 | HP ---
Date/Time of Note Date/Time of Note DATE: 03/30/17 TIME: 23:51 OB - History Hx of Present Free Text/Dictation 36 y.o. G1 with an IUP at 38 weeks came in the early AM with ruptured membranes with clear fluid and some contractions. Chief Complaint: Labor, SROM. Last Menstrual Period: Jul 07, 2016 Estimated Due Date: Apr 13, 2017 : 1 Para: 0 Care: Good Care Ultrasounds: Normal mid trimester US Other Concerns: Pt had chlamydia early in the that was treated in her and her spouse and a test of cure was negative. Pt also found to have a large 8 cm dermoid cyst that was removed laparoscopically at 18 weeks. Past Family/Social History * Past Medical, Surgical, Family and Obstetric Histories reviewed from chart. Blood Type: A+ Rubella: immune RPR/VDRL: Negative GBS Status: Negative HBsAG: Negative OB Admission Exam Vital Signs Vital Signs Vital Signs Date Time Temp Pulse Resp B/P Pulse Ox O2 Delivery O2 Flow Rate FiO2 03/30/17 03:38 98.1 77 18 120/73 Room Air Physical Exam HEENT: WNL Heart: Rhythm Normal Lungs: Clear Abdomen: WNL Extremities: Normal Reflexes: Normal Cervical Dilatation: 2cm Effacement: 50% Station: -2 Membranes: Ruptured Amniotic Fluid: Clear Heart Rate: 130's Accelerations: Accelerations Present Decelerations: No Decelerations Varibility: Moderate Contractions on Admission: < 5 Minutes Apart Last 72 hours Lab Results CBC & BMP 03/30/17 05:00 OB Assessment/Plan Reason for admission: rupture of membranes Plan: Expectant Management Other plan: Pitocin will be added as necessary. ENEIDA MARTÍNEZ MD Mar 30, 2017 23:57
[2017-03-31] VITALS (7 sets, daily range): BP systolic 97–113; BP diastolic 52–76; PULSE 72–97; RESP 17–20
[2017-03-31] MEDS ORDERED: CARBOPROST 250 MCG INJ IM PRN
[2017-03-31] MEDS ORDERED: BENZOCAINE 20% 56 ML SPRAY TOP PRN
[2017-03-31] MEDS ORDERED: HYDROCODONE/APAP (5/325) TAB PO PRN
[2017-03-31] MEDS ORDERED: MISOPROSTOL 200 MCG TAB PR PRN
[2017-03-31] MEDS ORDERED: OXYTOCIN 30 UNITS/LR 500 ML IV PRN
[2017-03-31] MEDS ORDERED: LANOLIN 7 GM TUBE TOP PRN
[2017-03-31] MEDS ORDERED: METHYLERGONOVINE 0.2 MG INJ IM PRN
[2017-03-31] MEDS: IBUPROFEN 600 MG TAB PO SCH ×5 (00:14→23:57)
--- NOTE | 2017-03-31 21:21 | QN ---
Documentation Comment PPD #1 Pt doing well. but still does not have any milk. Giving some formula as the baby's BS was low. T=98 BP 102/62 Fundus firm. Lochia minimal. Ext NT, no edema. P: Continue care and plan d/c tomorrow. ENEIDA MARTÍNEZ MD Mar 31, 2017 21:21
[2017-04-01 04:04] VITALS: BP 100/55; PULSE 74; RESP 18
[2017-04-01] MEDS: IBUPROFEN 600 MG TAB PO SCH ×3 (05:37→17:47)
[2017-04-01 07:50] LABS: BASOPHIL # 0.1 10^3/ul (0.0-0.1); BASOPHILS % 0.4 % (0.0-2.0); EOSINOPHILS # 0.2 10^3/ul (0.0-0.5); EOSINOPHILS % 1.7 % (0.0-7.0); HEMATOCRIT 28.1 % (37.0-47.0); HEMOGLOBIN 8.9 g/dl (12.0-16.0); LYMPHOCYTES # 2.9 10^3/ul (0.8-2.9); LYMPHOCYTES % 22.9 % (15.0-51.0); MEAN CORPUSCULAR HEMOGLOBIN 29.7 pg (29.0-33.0); MEAN CORPUSCULAR HGB CONC 31.7 g/dl (32.0-37.0); MEAN CORPUSCULAR VOLUME 93.7 fl (82.0-101.0); MEAN PLATELET VOLUME 11.9 fl (7.4-10.4); MONOCYTE # 0.7 10^3/ul (0.3-0.9); MONOCYTES % 5.7 % (0.0-11.0); NEUTROPHIL # 8.7 10^3/ul (1.6-7.5); NEUTROPHILS % 68.4 % (39.0-77.0); PLATELET COUNT 158 10^3/UL (140-415); RED CELL DISTRIBUTION WIDTH 14.4 % (11.5-14.5); WHITE BLOOD COUNT 12.7 10^3/ul (4.8-10.8)
[2017-04-01] MEDS ORDERED: DIPHTH/TET/ACEL PERTUSS (ADULT) 0.5 ML VIAL IM* ONE (09:00)
[2017-04-01 10:00] VITALS: BP 109/60; PULSE 77; RESP 16
[2017-04-01] MEDS ORDERED: INFLUENZA VIRUS VACCINE 0.5 ML SYG IM* ONE (11:00)
--- NOTE | 2017-04-01 12:35 | PD.PPDC ---
[employer]ER Discharge Instruction Condition Patient Condition: Good Diet Diet: Resume Regular Diet Activity/Restrictions Activity: Normal Activity May Shower Restrictions: No Sexual Activity Nothing in the Vagina No [place] No Tampons, douche Follow-up Follow-up with Physician: 6, Week/Weeks Return to clinic for [employer]INEER Instructions: Fever greater than 101 Chills Worsening abdominal pain Excessive Vaginal Bleeding OB Instructions: Breast Tenderness Depression ENEIDA MARTÍNEZ MD Apr 01, 2017 12:35
--- NOTE | 2017-04-01 13:19 | DS ---
Date/Time of Note Date/Time of Note DATE: 04/01/17 TIME: 13:18 Obstetrical Discharge Record Final Diagnosis Final Diagnosis: Term delivered Vaginal Delivery Obstetrical Delivery: Spontaneous, Laceration, Repaired Complications Augmentation: Yes Induction: No Condition on Discharge Physical Assessment Last Vitals: T=98.4 BP 100/55 Voiding: Yes Bowel Movement: Yes Breast: Soft, non-tender Fundus: Firm Calf Tenderness: No Patient Condition: Good ENEIDA MARTÍNEZ MD Apr 01, 2017 13:19
[2017-04-01 16:15] VITALS: BP 101/60; PULSE 94; RESP 14
[2017-04-01] MEDS ORDERED: VITAMIN A & D 5 GM OINT PACKET TOP ONE (18:37)
[2017-04-02] MEDS ORDERED: INFLUENZA VIRUS VACCINE 0.5 ML SYG IM* ONE (16:00)
== END 2017-04-01 19:00 | disposition home or self-care (01) | DRG 775 ==
LOC: L-D 03:05 → OBT 03:05 → L-D 03:50 → OBT 03:50 → PP1 03-31 01:21
PROVIDERS: ADMIT Obstetrics & Gynecology; ATTEND Obstetrics & Gynecology
PROC: 10E0XZZ Delivery of Products of Conception, External Approach (ICD-10-PCS; principal; 2017-03-30)
PROC: 0KQM0ZZ Repair Perineum Muscle, Open Approach (ICD-10-PCS; 2017-03-30)
DX: O70.1 Second degree perineal laceration during delivery (principal); Z37.0 Single live birth; O69.81X0 Labor and delivery complicated by cord around neck, without compression, not applicable or unspecified; Z3A.38 38 weeks gestation of pregnancy
CPT/HCPCS: 62319; 85025; 85610; 85730; 86592; 86900; 86901; 90686; 90715; G0463; J2405; J2590; J3010; J7120